=== PATIENT | male | born 1995 | race Caucasian/White ===

== ENCOUNTER 2018-10-15 21:06 | Emergency (ER) | payer BC, OTHER ==
[~2018-10-15] VITALS: Ht 193 cm; Wt 63.5 kg
[~2018-10-15 21:06] MED LIST: ALLEGRA180 MG; DOXYCYCLINE 10100 M1 PO
[2018-10-15 21:43] VITALS: BP 137/84
== END 2018-10-15 21:44 | disposition home or self-care (01) ==
LOC: M.ERS 21:06
DX: S61.213A Laceration without foreign body of left middle finger without damage to nail, initial encounter (principal); Z91.041 Radiographic dye allergy status; W26.8XXA Contact with other sharp object(s), not elsewhere classified, initial encounter; Y93.89 Activity, other specified; Y92.89 Other specified places as the place of occurrence of the external cause; Y99.8 Other external cause status

== ENCOUNTER 2020-01-04 23:30 | Emergency (ER) | payer OTHER ==
[~2020-01-04] VITALS: Ht 193 cm; Wt 63.5 kg
[2020-01-04] MEDS ORDERED: ALLEGRA ALLERGY60 MG PO (23:42)
[2020-01-05 01:21] LABS: ABSOLUTE BASOPHILS 0.1 thou/uL (0.0-0.2); ABSOLUTE EOSINOPHILS 0.1 thou/uL (0.0-0.7); ABSOLUTE LYMPHOCYTES 2.5 thou/uL (0.8-5.3); ABSOLUTE MONOCYTES 0.6 thou/uL (0.0-1.2); BASOPHILS 0.5 %; EOSINOPHILS 1.3 %; HEMATOCRIT 41.4 % (42.0-52.0); HEMOGLOBIN 14.4 gm/dL (14.0-18.0); LYMPHOCYTES 27.2 %; MCH 32.6 pg (26.0-34.0); MCHC 34.8 g/dL (28.0-37.0); MCV 93.4 fL (80.0-100.0); MONOCYTES 6.9 %; MPV 8.7 fl. (7.2-11.1); NUCLEATED RBCS 0 /100WBC; PLATELET COUNT* 197 thou/uL (150-400); POLYS 64.1 %; RBC 4.43 mil/uL (4.50-6.00); RDW-CV 12.5 % (10.5-14.5); WBC 9.3 thou/uL (4.0-11.0)
[2020-01-05 01:35] LABS: POTASSIUM 3.6 mmol/L (3.5-5.1)
[2020-01-05 01:39] LABS: ALBUMIN 4.4 g/dL (3.4-5.0); TOTAL BILIRUBIN 0.5 mg/dL (<0.1-1.0); TOTAL PROTEIN 7.1 g/dL (6.4-8.2)
[2020-01-05 01:41] LABS: APTT 24.6 Seconds (25.0-31.3); INR 1.2
[2020-01-05 02:27] VITALS: BP 103/59
--- NOTE | 2020-01-06 10:23 | EKG ---
[place] [address] ELECTROCARDIOGRAM REPORT Name: MICHELL PATEL [id number] Admission: 01/04/20 Attend Phys: Discharge: 01/05/20 Date of : [birth year] Date of Service: 01/04/20 2333 Report #: [id number] THIS REPORT FOR: //name// [facility] ED Test Date: 2020-01-04 Test Time: 23:33:27 Pat Name: MICHELL PATEL Department: Room: Gender: Terminal Clerk: : 1995 Requested By: Gail Ross Order Number: [id number] MD: Richard Garcia Measurements Intervals [place] Rate: 98 P: 54 IA: 176 QRS: 83 QRSD: 94 T: 27 QT: 358 QTc: 458 Interpretive Statements Sinus rhythm Probable left atrial enlargement No previous ECG available for comparison Electronically Signed On 01-06-2020 10:22:45 [employer]ARY [employer]UC[employer] PROFESS[employer] by Richard Garcia [email or web address] <ELECTRONICALLY SIGNED> By: Richard Garcia MD, [facility] 01/06/20 1022 2333 32 Richard Garcia MD, FACC /EPI
== END 2020-01-05 02:27 | disposition home or self-care (01) ==
LOC: M.ERS 23:30
PROVIDERS: Personal Emergency Response Attendant
DX: R07.89 Other chest pain (principal); G43.909 Migraine, unspecified, not intractable, without status migrainosus; Z88.0 Allergy status to penicillin; Z91.041 Radiographic dye allergy status